=== PATIENT | male | born 1945 | race Hispanic/Latino ===

== ENCOUNTER 2019-10-15 21:24 | Inpatient (IN) | payer MEDICAID, OTHER ==
[~2019-10-15] VITALS: Ht 165.1 cm; Wt 63.3 kg
[2019-10-15 22:17] LABS: BASOPHILS % (AUTO) 0.4 % (0.0-5.0); EOSINOPHILS % (AUTO) 2.1 % (0.0-8.0); HEMATOCRIT 36.5 % (42-54); LYMPHOCYTES % (AUTO) 20.8 % (21.0-51.0); MEAN CORPUSCULAR HEMOGLOBIN 27.6 pg (27.0-33.0); MEAN CORPUSCULAR HGB CONC 32.9 g/dL (32.0-36.0); MEAN CORPUSCULAR VOLUME 83.9 fL (79-99); MONOCYTES % (AUTO) 10.1 % (3.0-13.0); NEUTROPHILS % (AUTO) 66.3 % (40.0-77.0); PLATELET COUNT (AUTO) 228 K/uL (130-400); RED BLOOD CELL COUNT(AUTO) 4.35 MIL/uL (4.50-6.20); RED CELL DISTRIBUTION WIDTH 14.4 % (11.0-15.5); WHITE BLOOD COUNT (AUTO) 6.7 K/uL (4.8-10.8)
[2019-10-15 22:29] LABS: CREATININE 0.9 mg/dL (0.5-1.5); POTASSIUM 3.4 mmol/L (3.5-5.1)
[2019-10-15 22:33] LABS: INR 0.96 (0.85-1.15); PARTIAL THROMBOPLASTIN TIME 28.1 SEC (26.3-35.5); PROTHROMBIN TIME 10.1 SEC (9.6-11.6)
[2019-10-15 22:43] LABS: ALBUMIN 3.3 g/dL (3.5-5.0); BILIRUBIN,TOTAL 0.5 mg/dL (0.2-1.0); TOTAL PROTEIN, SERUM 6.9 g/dL (6.0-8.3)
[2019-10-15] MEDS ORDERED: LIDOCAINE HCL 2% JELLY 5 ML ONE (22:59)
[2019-10-15 23:17] LABS: APPEARANCE,URINE Clear (CLEAR); BILIRUBIN,URINE Negative (NEGATIVE); COLOR,URINE Yellow (YELLOW); GLUCOSE, URINE (UA) Negative (NEGATIVE); KETONES,URINE Trace mg/dL (NEGATIVE); LEUKOCYTE ESTERASE ,URINE Negative (NEGATIVE); NITRATE,URINE Negative (NEGATIVE); OCCULT BLOOD,URINE Negative (NEGATIVE); PROTEIN,URINE Trace mg/dL (NEGATIVE)
[2019-10-16] VITALS (11 sets, daily range): BP systolic 118–146; BP diastolic 61–75
[2019-10-16] MEDS ORDERED: NITROGLYCERIN 1GM/1 INCH PACKET TD ONE (00:43)
[2019-10-16] MEDS ORDERED: SODIUM CHLORIDE 0.9% 1000ML 1,000 ML IV ONE (00:48)
[2019-10-16] MEDS ORDERED: SODIUM CHLORIDE 0.9% 1000ML 1,000 ML IV SCH (02:00)
[2019-10-16] MEDS ORDERED: ONDANSETRON HCL 4 MG/2 ML VIAL IV PRN (02:00)
[2019-10-16] MEDS ORDERED: ASPIRIN 81MG TAB.CHEW PO SCH (02:00)
[2019-10-16] MEDS ORDERED: NITROGLYCERIN 0.4 MG SL TAB SL PRN (02:00)
[2019-10-16] MEDS: NITROGLYCERIN 1GM/1 INCH PACKET TD SCH ×3 (02:00→17:52)
--- NOTE | 2019-10-16 03:50 | NUR ---
Admission note: Admitted to floor via stretcher. AOx 4. Pt. very responsive and cooperative. Placed in bed comfortably with HOBE to semi- fowlers position. VS checked and recorded. Assessment done. ( see CPOE flow chart for full assessment). Has 14 fr NGT attached to LIS as ordered with orange-brownish fluid output. Plan of care initiated. Attached to Telemetry at bedside with SB 56 result. Hospitalist QUENTIN Canela came in to visit and assessed pt. with some additional orders. Pt. maintained on NPO. Oriented to room and used of call light. Policies and procedures explained. Verbalized understanding. For Surgeon consult, Sai TUTTLE aware as reported from ER staff ( Mariaelena HORVATH) Kept monitored and observed for any unusualities. Verbalized discomfort felt is mild and tolerable. No apparent distress noted. Endorsed to AM shift accordingly.
[2019-10-16] MEDS ORDERED: ATOR40TA69 PO (04:36)
[2019-10-16] MEDS ORDERED: FURO20TA4 PO (04:36)
[2019-10-16] MEDS ORDERED: ESCI5TAB10 PO (04:36)
[2019-10-16] MEDS ORDERED: ALLO100T PO (04:36)
[2019-10-16] MEDS ORDERED: AEC81 PO (04:36)
[2019-10-16] MEDS ORDERED: LOSA25TA41 PO (04:36)
[2019-10-16] MEDS ORDERED: CARV3.12 PO (04:36)
[2019-10-16 06:26] LABS: BASOPHILS % (AUTO) 0.4 % (0.0-5.0); HEMATOCRIT 34.5 % (42-54); LYMPHOCYTES % (AUTO) 28.4 % (21.0-51.0); MEAN CORPUSCULAR HEMOGLOBIN 27.3 pg (27.0-33.0); MEAN CORPUSCULAR HGB CONC 32.2 g/dL (32.0-36.0); MEAN CORPUSCULAR VOLUME 84.8 fL (79-99); MONOCYTES % (AUTO) 10.9 % (3.0-13.0); NEUTROPHILS % (AUTO) 56.1 % (40.0-77.0); PLATELET COUNT (AUTO) 202 K/uL (130-400); RED BLOOD CELL COUNT(AUTO) 4.07 MIL/uL (4.50-6.20); RED CELL DISTRIBUTION WIDTH 14.5 % (11.0-15.5); WHITE BLOOD COUNT (AUTO) 4.8 K/uL (4.8-10.8)
[2019-10-16 06:49] LABS: ALBUMIN 2.9 g/dL (3.5-5.0); BILIRUBIN,TOTAL 0.5 mg/dL (0.2-1.0); CREATININE 0.9 mg/dL (0.5-1.5); MAGNESIUM 1.9 mg/dL (1.80-2.40); POTASSIUM 3.3 mmol/L (3.5-5.1); TOTAL PROTEIN, SERUM 6.2 g/dL (6.0-8.3); TROPONIN I 0.07 ng/mL (0.00-0.06)
[2019-10-16] MEDS: POTASSIUM CHLORIDE 20MEQ/100ML 100 ML IV PRN (08:49)
[2019-10-16] MEDS: LIDOCAINE HCL-MPF 1% 2ML VIAL IJ PRN (08:50)
[2019-10-16] MEDS: FAMOTIDINE/PF 20 MG/2 ML VIAL IV SCH ×2 (08:50→21:42)
[2019-10-16] MEDS: DEXTROSE 5%-LACTATED RINGERS 1,000 ML IV SCH ×2 (10:26→21:42)
[2019-10-16] MEDS: ZOSYN 3.375GM+NS 50ML 50 ML IV SCH ×2 (10:26→17:51)
[2019-10-16 12:21] LABS: TROPONIN I 0.06 ng/mL (0.00-0.06)
--- NOTE | 2019-10-16 16:34 | NUR ---
MESSAGE LEFT WITH KATRIN REDRAWER ON STAT ORDER FOR ECHOCARDIOGRAM PLACED BY DR VENEGAS ..
--- NOTE | 2019-10-16 19:43 | NUR ---
NANNETTE TUTTLE ROUNDED: Came in to visit , assessed and examined the pt. with orders - carried out. For EGD with consent signed eliseo (10/17/19) at 1300. miller supervisor Ms. Painter notified. Pt. maintained on NPO attached to LIS.
[2019-10-16] MEDS ORDERED: POTASSIUM CHLORIDE IV ONE (20:30)
[2019-10-16] MEDS ORDERED: SODIUM CHLORIDE 0.9% IV ONE (20:30)
[2019-10-16] MEDS ORDERED: AZITHROMYCIN 500MG+NS 250ML 250 ML IV ONE (20:45)
[2019-10-17] VITALS (21 sets, daily range): BP systolic 92–158; BP diastolic 59–87
[2019-10-17] MEDS: ZOSYN 3.375GM+NS 50ML 50 ML IV SCH ×4 (00:27→23:54)
[2019-10-17] MEDS: NITROGLYCERIN 1GM/1 INCH PACKET TD SCH ×3 (02:03→18:00)
[2019-10-17 06:08] LABS: HEMATOCRIT 38.9 % (42-54); MEAN CORPUSCULAR HEMOGLOBIN 27.5 pg (27.0-33.0); MEAN CORPUSCULAR HGB CONC 32.4 g/dL (32.0-36.0); MEAN CORPUSCULAR VOLUME 84.7 fL (79-99); PLATELET COUNT (AUTO) 249 K/uL (130-400); RED BLOOD CELL COUNT(AUTO) 4.59 MIL/uL (4.50-6.20); RED CELL DISTRIBUTION WIDTH 14.5 % (11.0-15.5); WHITE BLOOD COUNT (AUTO) 8.5 K/uL (4.8-10.8)
[2019-10-17 06:16] LABS: CREATININE 1.1 mg/dL (0.5-1.5); MAGNESIUM 1.8 mg/dL (1.80-2.40); POTASSIUM 3.5 mmol/L (3.5-5.1)
[2019-10-17 08:00] LABS: BASOPHILS % (MANUAL) 2 % (0-2); EOSINOPHILS % (MANUAL) 2 % (1-6); LYMPHOCYTES % (MANUAL) 24 % (22-44); MONOCYTES % (MANUAL) 7 % (2-9); SEGMENTED NEUTROPHILS % 65 % (40-70)
[2019-10-17 08:01] LABS: MAN.DIFF COMMENT-IMPRESSION MANUAL DIFFERENTIAL; PLATELET MORPHOLOGY COMMENT ADEQUATE
[2019-10-17] MEDS: CARVEDILOL 3.125 MG TABLET PO SCH ×2 (08:53→21:00)
[2019-10-17] MEDS: ASPIRIN 81MG TAB.CHEW PO SCH (08:53)
[2019-10-17] MEDS: LISINOPRIL 10 MG TABLET PO SCH (08:53)
[2019-10-17] MEDS: SPIRONOLACTONE 25 MG TAB PO SCH (08:54)
--- NOTE | 2019-10-17 09:01 | NUR ---
DC PLAN MEET WITH PATIENT IN ROOM. PER PATIENT, LIVES WITH SPOUSE IN SONS HOME, NO PROVIDER OR COMMUNITY SERVICES, PATIENT DOESNT DRIVE AND DAUGHTER TAKES HIM TO APPOINTMENTS, NO DME IN USE, AND FEELS SAFE TO RETURN HOME. COMMUNITY RESOURCE PACKET GIVEN TO PATIENT, VERBALIZED UNDERSTANDING OF INFORMATION. Addendum: 10/17/19 at 0904 by BRANDON HERNANDEZ RN CM Amended: Links added.
[2019-10-17] MEDS: FAMOTIDINE/PF 20 MG/2 ML VIAL IV SCH ×2 (09:59→22:53)
[2019-10-17] MEDS: DEXTROSE 5%-LACTATED RINGERS 1,000 ML IV SCH ×2 (10:45→23:55)
[2019-10-17] MEDS ORDERED: PROPOFOL 10 MG/ML 20ML VIAL IV ONE (15:03)
[2019-10-17] MEDS: ATORVASTATIN CALCIUM 20 MG TABLET PO SCH (21:00)
[2019-10-18] VITALS (7 sets, daily range): BP systolic 103–150; BP diastolic 59–87
[2019-10-18] MEDS: NITROGLYCERIN 1GM/1 INCH PACKET TD SCH ×3 (01:59→18:00)
[2019-10-18 05:09] LABS: MAGNESIUM 1.7 mg/dL (1.80-2.40); POTASSIUM 3.4 mmol/L (3.5-5.1)
[2019-10-18] MEDS: FAMOTIDINE/PF 20 MG/2 ML VIAL IV SCH (08:32)
[2019-10-18] MEDS: ZOSYN 3.375GM+NS 50ML 50 ML IV SCH ×2 (08:35→17:20)
[2019-10-18] MEDS: ASPIRIN 81MG TAB.CHEW PO SCH (09:00)
[2019-10-18] MEDS: CARVEDILOL 3.125 MG TABLET PO SCH ×2 (09:00→20:15)
[2019-10-18] MEDS: LISINOPRIL 10 MG TABLET PO SCH (09:00)
[2019-10-18] MEDS: SPIRONOLACTONE 25 MG TAB PO SCH (09:00)
[2019-10-18] MEDS: PANTOPRAZOLE 40 MG/VIAL IVP SCH ×2 (13:12→20:15)
[2019-10-18] MEDS: DEXTROSE 5%-LACTATED RINGERS 1,000 ML IV SCH (17:25)
[2019-10-18] MEDS ORDERED: FLU VACC QS2019-20 36MOS UP/PF 60 MCG/0.5 ML ML IM ONE (18:43)
--- NOTE | 2019-10-18 19:46 | NUR ---
flu vaccine not given. spouse reports pt has already gotten the vaccine. Stable.
[2019-10-18] MEDS: ATORVASTATIN CALCIUM 20 MG TABLET PO SCH (20:15)
[2019-10-18] MEDS: KETOROLAC TROMETHAMINE 15MG/ML IV PRN (21:14)
[2019-10-19] MEDS: ZOSYN 3.375GM+NS 50ML 50 ML IV SCH ×2 (00:28→11:22)
[2019-10-19] MEDS: NITROGLYCERIN 1GM/1 INCH PACKET TD SCH ×3 (02:00→17:46)
--- NOTE | 2019-10-19 02:30 | NUR ---
Nursing Note-IV Pt IV leaking some but pt refused to let me remove IV and start another. PT stated "My IV's always leak, the other nurse wanted to change the IV also but I don't want you too" Addendum: 10/19/19 at 0507 by DARVIN LATHAM RN RN Charted on wrong pt
--- NOTE | 2019-10-19 03:30 | NUR ---
Nursing Note-Downtime Pt medication charted on paper charting
[2019-10-19] MEDS: DEXTROSE 5%-LACTATED RINGERS 1,000 ML IV SCH ×2 (03:40→20:27)
[2019-10-19 04:49] VITALS: BP 130/70
[2019-10-19 06:18] LABS: HEMATOCRIT 36.5 % (42-54); MEAN CORPUSCULAR HEMOGLOBIN 26.9 pg (27.0-33.0); MEAN CORPUSCULAR HGB CONC 32.3 g/dL (32.0-36.0); MEAN CORPUSCULAR VOLUME 83.3 fL (79-99); PLATELET COUNT (AUTO) 234 K/uL (130-400); RED BLOOD CELL COUNT(AUTO) 4.38 MIL/uL (4.50-6.20); RED CELL DISTRIBUTION WIDTH 14.3 % (11.0-15.5); WHITE BLOOD COUNT (AUTO) 5.4 K/uL (4.8-10.8)
[2019-10-19 06:34] LABS: MAGNESIUM 1.7 mg/dL (1.80-2.40); POTASSIUM 3.1 mmol/L (3.5-5.1)
[2019-10-19] MEDS: MAGNESIUM 2GM PREMIX 50ML 50 ML IV PRN (06:37)
[2019-10-19 08:00] VITALS: BP 117/71
[2019-10-19] MEDS: CARVEDILOL 3.125 MG TABLET PO SCH ×2 (09:00→20:15)
[2019-10-19] MEDS: SPIRONOLACTONE 25 MG TAB PO SCH (09:00)
[2019-10-19] MEDS: LISINOPRIL 10 MG TABLET PO SCH (09:00)
[2019-10-19] MEDS: ASPIRIN 81MG TAB.CHEW PO SCH (09:00)
[2019-10-19 09:46] LABS: EOSINOPHILS % (MANUAL) 1 % (1-6); LYMPHOCYTES % (MANUAL) 21 % (22-44); MONOCYTES % (MANUAL) 15 % (2-9); SEGMENTED NEUTROPHILS % 63 % (40-70)
[2019-10-19 09:47] LABS: MAN.DIFF COMMENT-IMPRESSION MANUAL DIFFERENTIAL; PLATELET MORPHOLOGY COMMENT ADEQUATE
[2019-10-19] MEDS ORDERED: LIDOCAINE 5% TOPICAL PATCH TP SCH (10:30)
[2019-10-19 12:00] VITALS: BP 134/67
[2019-10-19] MEDS: POTASSIUM CHLORIDE 20MEQ/100ML 100 ML IV PRN ×2 (13:21→17:33)
[2019-10-19] MEDS: LIDOCAINE HCL-MPF 1% 2ML VIAL IJ PRN ×2 (13:21→17:33)
[2019-10-19] MEDS: PHARMACY COMMUNICATION MISC SCH ×2 (15:45→23:45)
[2019-10-19 16:00] VITALS: BP 143/79
[2019-10-19 18:20] LABS: CREATININE 0.9 mg/dL (0.5-1.5); POTASSIUM 3.5 mmol/L (3.5-5.1)
[2019-10-19 20:00] VITALS: BP 138/72
[2019-10-19] MEDS: PANTOPRAZOLE 40 MG/VIAL IVP SCH (20:14)
[2019-10-19] MEDS: ATORVASTATIN CALCIUM 20 MG TABLET PO SCH (20:15)
[2019-10-19] MEDS: KETOROLAC TROMETHAMINE 15MG/ML IV PRN (22:08)
[2019-10-20] VITALS: BP 135/64
[2019-10-20] MEDS: NITROGLYCERIN 1GM/1 INCH PACKET TD SCH ×3 (01:32→17:55)
[2019-10-20 04:00] VITALS: BP 120/64
[2019-10-20] MEDS: DEXTROSE 5%-LACTATED RINGERS 1,000 ML IV SCH ×2 (05:56→14:21)
[2019-10-20 06:05] LABS: MAGNESIUM 1.9 mg/dL (1.80-2.40); POTASSIUM 3.5 mmol/L (3.5-5.1)
[2019-10-20] MEDS: POTASSIUM CHLORIDE 20MEQ/100ML 100 ML IV PRN (07:11)
[2019-10-20] MEDS: PHARMACY COMMUNICATION MISC SCH ×3 (07:45→23:45)
[2019-10-20 08:00] VITALS: BP 127/63
[2019-10-20] MEDS: CARVEDILOL 3.125 MG TABLET PO SCH ×2 (08:36→19:54)
[2019-10-20] MEDS: ASPIRIN 81MG TAB.CHEW PO SCH (08:36)
[2019-10-20] MEDS: SPIRONOLACTONE 25 MG TAB PO SCH (08:36)
[2019-10-20] MEDS: LISINOPRIL 10 MG TABLET PO SCH (08:36)
[2019-10-20] MEDS: PANTOPRAZOLE 40 MG/VIAL IVP SCH ×2 (08:38→20:00)
[2019-10-20 12:00] VITALS: BP_SYST 127; BP_SYST 132; BP_DIAS 63; BP_DIAS 72
[2019-10-20 16:00] VITALS: BP 152/74
[2019-10-20 19:00] VITALS: BP 140/76
[2019-10-20] MEDS: ATORVASTATIN CALCIUM 20 MG TABLET PO SCH (19:55)
[2019-10-20] MEDS: KETOROLAC TROMETHAMINE 15MG/ML IV PRN (20:01)
[2019-10-21] VITALS: BP 136/68
[2019-10-21] MEDS: NITROGLYCERIN 1GM/1 INCH PACKET TD SCH ×3 (01:43→17:51)
[2019-10-21 04:00] VITALS: BP 131/69
[2019-10-21] MEDS: DEXTROSE 5%-LACTATED RINGERS 1,000 ML IV SCH ×2 (04:39→21:48)
[2019-10-21 05:31] LABS: BASOPHILS % (AUTO) 0.3 % (0.0-5.0); EOSINOPHILS % (AUTO) 5.4 % (0.0-8.0); HEMATOCRIT 38.2 % (42-54); LYMPHOCYTES % (AUTO) 22.3 % (21.0-51.0); MEAN CORPUSCULAR HEMOGLOBIN 26.9 pg (27.0-33.0); MEAN CORPUSCULAR HGB CONC 32.2 g/dL (32.0-36.0); MEAN CORPUSCULAR VOLUME 83.4 fL (79-99); MONOCYTES % (AUTO) 8.2 % (3.0-13.0); NEUTROPHILS % (AUTO) 63.5 % (40.0-77.0); PLATELET COUNT (AUTO) 251 K/uL (130-400); RED BLOOD CELL COUNT(AUTO) 4.58 MIL/uL (4.50-6.20); RED CELL DISTRIBUTION WIDTH 14.3 % (11.0-15.5); WHITE BLOOD COUNT (AUTO) 5.9 K/uL (4.8-10.8)
[2019-10-21 05:46] LABS: MAGNESIUM 1.8 mg/dL (1.80-2.40); POTASSIUM 3.5 mmol/L (3.5-5.1)
[2019-10-21] MEDS: MAGNESIUM 2GM PREMIX 50ML 50 ML IV PRN (07:05)
[2019-10-21] MEDS: PHARMACY COMMUNICATION MISC SCH ×3 (07:45→23:42)
[2019-10-21 08:00] VITALS: BP 120/54
[2019-10-21] MEDS: ASPIRIN 81MG TAB.CHEW PO SCH (09:00)
[2019-10-21] MEDS: LISINOPRIL 10 MG TABLET PO SCH (09:00)
[2019-10-21] MEDS: CARVEDILOL 3.125 MG TABLET PO SCH ×2 (09:00→20:29)
[2019-10-21] MEDS: SPIRONOLACTONE 25 MG TAB PO SCH (09:00)
[2019-10-21] MEDS: PANTOPRAZOLE 40 MG/VIAL IVP SCH ×2 (09:31→21:47)
[2019-10-21 12:00] VITALS: BP 122/60
[2019-10-21] MEDS: LIDOCAINE HCL-MPF 1% 2ML VIAL IJ PRN (12:41)
[2019-10-21] MEDS: POTASSIUM CHLORIDE 20MEQ/100ML 100 ML IV PRN (12:41)
--- NOTE | 2019-10-21 14:25 | NUR ---
Nutrition intervention: Nutrition notification for "Pt has been NPO since admission". Pt admitted for bowel obstruction and elevated troponin. Pt is currently NPO x6days, LBM noted on 10/17, RN reports bowel sounds are present. 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 As per Dr. Fuentes's orders pt to remain NPO and follow up in two weeks in his office. Recommendations: Begin alternate means of nutrition. PPN recommendations made by MEAGAN, left in pt's chart- YULIET Corbin notified. RD to continue monitoring pt's nutritional status for continued intervention. Addendum: 10/21/19 at 1429 by MARIA DEL CARMEN MCDERMOTT RD RD Amended: Links added.
[2019-10-21 16:00] VITALS: BP 124/59
[2019-10-21] MEDS: LIDOCAINE 5% TOPICAL PATCH TP SCH (18:18)
[2019-10-21 20:00] VITALS: BP 138/72
[2019-10-21] MEDS: ATORVASTATIN CALCIUM 20 MG TABLET PO SCH (20:30)
--- NOTE | 2019-10-21 21:47 | NUR ---
MEDS SHIFT ASSESSMENT DONE, PLEASE REFER TO CHART. DUE MEDS ADMINISTERED, TOLERATED WELL. KEPT RESTED AND COMFORTABLE WITH HOB ELEVATED. KEPT NPO. KEPT NGT TO LIS. WILL MONITOR PT. CALL LIGHT WITHIN REACH. Addendum: 10/22/19 at 0044 by MURALI CAMPBELL RN RN Amended: Links added.
[2019-10-22] VITALS (7 sets, daily range): BP systolic 102–130; BP diastolic 56–71
[2019-10-22] MEDS: NITROGLYCERIN 1GM/1 INCH PACKET TD SCH ×2 (02:00→10:00)
--- NOTE | 2019-10-22 02:00 | NUR ---
ROUNDS PT RESTING WELL, NO DISTRESS NOTED. KEPT RESTED AND COMFORTABLE. CALL LIGHT WITHIN REACH. WILL MONITOR PT. FAMILY ASLEEP AT BEDSIDE.
[2019-10-22 05:13] LABS: MAGNESIUM 2.1 mg/dL (1.80-2.40); POTASSIUM 3.6 mmol/L (3.5-5.1)
[2019-10-22] MEDS: LIDOCAINE HCL-MPF 1% 2ML VIAL IJ PRN (05:33)
[2019-10-22] MEDS: POTASSIUM CHLORIDE 20MEQ/100ML 100 ML IV PRN (05:33)
--- NOTE | 2019-10-22 05:33 | NUR ---
KCL KCL=3.6. POTASSIUM REPLACEMENT IV STARTED. FIXED AND RE-TAPED NGT TO NOSE. KEPT TO LIS. KEPT PT NPO. FOR MORE CARE AND MANAGEMENT.
--- NOTE | 2019-10-22 09:58 | NUR ---
RD FOLLOW UP PT REMAINS NPO; HAS BEEN NPO SINCE ADMISSION. RD RECOMMENDS TO CONSIDER ALTERNATE MEANS OF NUTRITION- TPN VS PPN. IF PT WILL BE NPO FOR SEVERAL WEEKS- RD RECOMMENDS LONG-TERM, PARENTERAL NUTRITION; TPN VIA PICC LINE. IF PT WILL BE NPO FOR APPROX. 2 WEEKS OR LESS- RD RECOMMENDS SHORT-TERM PARENTERAL NUTRITION; PPN VIA PERIPHERAL ADMINISTRATION. LABS REVIEWED (TCK ELEVATED)- PT WITH LOWER PROTEIN NEEDS DUE TO THIS. MEDS REVIEWED. IF DECIDED TPN- RD RECOMMENDS PRE-MIXED CLINIMIX 5/15 AT 40ML/HR, WITH 20% INTRALIPIDS, 10ML MULTIVITAMINS IF PPN- RD RECOMMENDS CLINIMIX 4.25/5 AT 41.6ML/HR, WITH 20% INTRALIPIDS, 10ML MULTIVITAMINS Monitor CMP, Mg, Phos and Potassium Monitor Lipid panel every Tue,Tue,Tuesday RD WILL CONTINUE TO MONITOR AND FOLLOW UP, THANK YOU. Addendum: 10/22/19 at [address] Amended: Links added.
[2019-10-22] MEDS: DEXTROSE 5%-LACTATED RINGERS 1,000 ML IV SCH (11:40)
[2019-10-22] MEDS: ASPIRIN 81MG TAB.CHEW PO SCH (11:42)
[2019-10-22] MEDS: SPIRONOLACTONE 25 MG TAB PO SCH (11:42)
[2019-10-22] MEDS: LISINOPRIL 10 MG TABLET PO SCH (11:42)
[2019-10-22] MEDS: LIDOCAINE 5% TOPICAL PATCH TP SCH (11:43)
[2019-10-22] MEDS: PANTOPRAZOLE 40 MG/VIAL IVP SCH ×2 (11:43→20:45)
[2019-10-22] MEDS: CARVEDILOL 3.125 MG TABLET PO SCH ×2 (11:43→20:44)
[2019-10-22] MEDS ORDERED: HYDRALAZINE HCL 20 MG/ML VIAL IV PRN (17:45)
[2019-10-22 18:52] LABS: PARTIAL THROMBOPLASTIN TIME 25.6 SEC (26.3-35.5); PROTHROMBIN TIME 10.5 SEC (9.6-11.6)
[2019-10-22] MEDS: ATORVASTATIN CALCIUM 20 MG TABLET PO SCH (20:44)
[2019-10-23] MEDS: KETOROLAC TROMETHAMINE 15MG/ML IV PRN (00:01)
[2019-10-23 04:00] VITALS: BP 94/56
[2019-10-23 05:12] LABS: BASOPHILS % (AUTO) 0.9 % (0.0-5.0); EOSINOPHILS % (AUTO) 5.9 % (0.0-8.0); HEMATOCRIT 37.8 % (42-54); LYMPHOCYTES % (AUTO) 26.2 % (21.0-51.0); MEAN CORPUSCULAR HEMOGLOBIN 27.3 pg (27.0-33.0); MEAN CORPUSCULAR HGB CONC 32.8 g/dL (32.0-36.0); MEAN CORPUSCULAR VOLUME 83.3 fL (79-99); MONOCYTES % (AUTO) 7.5 % (3.0-13.0); NEUTROPHILS % (AUTO) 59.3 % (40.0-77.0); PLATELET COUNT (AUTO) 221 K/uL (130-400); RED BLOOD CELL COUNT(AUTO) 4.54 MIL/uL (4.50-6.20); RED CELL DISTRIBUTION WIDTH 14.3 % (11.0-15.5); WHITE BLOOD COUNT (AUTO) 5.6 K/uL (4.8-10.8)
[2019-10-23 05:29] LABS: CREATININE 1.1 mg/dL (0.5-1.5); POTASSIUM 3.6 mmol/L (3.5-5.1)
[2019-10-23] MEDS: DEXTROSE 5%-LACTATED RINGERS 1,000 ML IV SCH ×2 (06:45→14:20)
[2019-10-23 07:58] VITALS: BP 101/57
--- NOTE | 2019-10-23 10:51 | NUR ---
RD FOLLOW UP PER SURGEON, START TOTAL PARENTERAL NUTRITION VIA PICC LINE. RD RECOMMENDS TO USE PRE-MIXED CLINIMIX E 5/15 AT 40ML/HR ADD 20% INTRA-LIPIDS; RUN LIPID PANEL EVERY MON, WED AND FRI ADD 10ML ADULT MULTIVITAMINS MONITOR CMP, Mg, Phos and K RD WILL CONTINUE TO MONITOR AND FOLLOW UP, THANK YOU. Addendum: 10/23/19 at [address] Amended: Links added.
[2019-10-23 11:15] VITALS: BP 117/60
[2019-10-23] MEDS: ASPIRIN 81MG TAB.CHEW PO SCH (11:23)
[2019-10-23] MEDS: LIDOCAINE 5% TOPICAL PATCH TP SCH (11:24)
[2019-10-23] MEDS: CARVEDILOL 3.125 MG TABLET PO SCH ×2 (11:24→21:27)
[2019-10-23] MEDS: SPIRONOLACTONE 25 MG TAB PO SCH (11:24)
[2019-10-23] MEDS: LISINOPRIL 10 MG TABLET PO SCH (11:24)
--- NOTE | 2019-10-23 15:15 | NUR ---
NOTE PATIENT HAS BEEN STABLE BUT REMAINS WITH NGT TO LOW SUCTION INTERMITTENTLY. 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 ORDERS WERE RECEIVED FOR TPN SINCE HE WILL CONTINUE TO BE NPO. PICC LINE WAS JUST PLACED. WILL FAX TPN ORDERS TO PHARMACY TO START INFUSION. PICC LINE IS READY FOR USE. HAVE BEEN WAITING FOR DR KHALIL TO SPEAK TO FAMILY FOR THEY DO NOT KNOW THE PATHOLOGY RESULTS FROM BIOPSY. IS ALWAYS AT HIS SIDE.
[2019-10-23] MEDS ORDERED: M.V.I. IV [ADULT] 10 ML in CLINIMIX E 5%-15% 2,000 ML IV SCH (15:27)
[2019-10-23] MEDS ORDERED: FAT EMULSIONS 20% 250ML 250 ML IV SCH (15:28)
[2019-10-23] MEDS ORDERED: COMPOUND IV MISC 1 EACH IVSOLN MISC PRN (15:30)
[2019-10-23] MEDS ORDERED: COMPOUND IV REFRIGERATED 1 EACH IVSOLN MISC PRN (15:30)
[2019-10-23 16:30] VITALS: BP 117/66
[2019-10-23 19:30] VITALS: BP 134/71
[2019-10-23] MEDS: FAMOTIDINE/PF 20 MG/2 ML VIAL IV SCH (21:26)
[2019-10-23] MEDS: ATORVASTATIN CALCIUM 20 MG TABLET PO SCH (21:27)
[2019-10-23 23:44] VITALS: BP 130/71
[2019-10-24 03:30] VITALS: BP 89/50
[2019-10-24] MEDS: DEXTROSE 5%-LACTATED RINGERS 1,000 ML IV SCH ×2 (03:34→18:45)
[2019-10-24 05:42] LABS: BASOPHILS % (AUTO) 0.6 % (0.0-5.0); EOSINOPHILS % (AUTO) 4.2 % (0.0-8.0); HEMATOCRIT 35.4 % (42-54); LYMPHOCYTES % (AUTO) 16.1 % (21.0-51.0); MEAN CORPUSCULAR HEMOGLOBIN 27.5 pg (27.0-33.0); MEAN CORPUSCULAR HGB CONC 33.1 g/dL (32.0-36.0); MEAN CORPUSCULAR VOLUME 83.3 fL (79-99); MONOCYTES % (AUTO) 5.3 % (3.0-13.0); NEUTROPHILS % (AUTO) 73.5 % (40.0-77.0); PLATELET COUNT (AUTO) 215 K/uL (130-400); RED BLOOD CELL COUNT(AUTO) 4.25 MIL/uL (4.50-6.20); RED CELL DISTRIBUTION WIDTH 13.8 % (11.0-15.5); WHITE BLOOD COUNT (AUTO) 6.4 K/uL (4.8-10.8)
[2019-10-24 05:51] LABS: CREATININE 1.1 mg/dL (0.5-1.5); POTASSIUM 3.5 mmol/L (3.5-5.1)
[2019-10-24 08:02] VITALS: BP 117/56
[2019-10-24 08:37] LABS: ALBUMIN 2.4 g/dL (3.5-5.0); BILIRUBIN,DIRECT 0.2 mg/dL (0.0-0.3); BILIRUBIN,TOTAL 0.6 mg/dL (0.2-1.0); MAGNESIUM 1.6 mg/dL (1.80-2.40); PHOSPHORUS 3.4 mg/dL (2.5-4.9); TOTAL PROTEIN, SERUM 5.6 g/dL (6.0-8.3)
[2019-10-24] MEDS: FAMOTIDINE/PF 20 MG/2 ML VIAL IV SCH ×2 (08:58→20:05)
[2019-10-24] MEDS: LISINOPRIL 10 MG TABLET PO SCH (09:00)
[2019-10-24] MEDS: SPIRONOLACTONE 25 MG TAB PO SCH (09:00)
[2019-10-24] MEDS: CARVEDILOL 3.125 MG TABLET PO SCH ×2 (09:00→20:05)
[2019-10-24] MEDS: ASPIRIN 81MG TAB.CHEW PO SCH (09:00)
[2019-10-24] MEDS: LIDOCAINE 5% TOPICAL PATCH TP SCH (09:49)
[2019-10-24 11:24] VITALS: BP 94/51
[2019-10-24 16:22] VITALS: BP 101/54
[2019-10-24] MEDS: POTASSIUM CHLORIDE 20MEQ/100ML 100 ML IV PRN (16:57)
[2019-10-24] MEDS: LIDOCAINE HCL-MPF 1% 2ML VIAL IJ PRN (16:58)
[2019-10-24] MEDS ORDERED: M.V.I. IV [ADULT] 10 ML in CLINIMIX E 5%-15% 2,000 ML IV SCH ×2 (18:00→18:15)
[2019-10-24] MEDS: FAT EMULSIONS 20% 250ML 250 ML IV SCH (18:34)
[2019-10-24] MEDS: ATORVASTATIN CALCIUM 20 MG TABLET PO SCH (20:05)
[2019-10-24 20:09] VITALS: BP 95/57
[2019-10-25 00:12] VITALS: BP 101/58
[2019-10-25 04:20] VITALS: BP 92/50
[2019-10-25] MEDS: DEXTROSE 5%-LACTATED RINGERS 1,000 ML IV SCH ×2 (05:21→19:40)
[2019-10-25 05:33] LABS: BASOPHILS % (AUTO) 0.5 % (0.0-5.0); EOSINOPHILS % (AUTO) 3.8 % (0.0-8.0); HEMATOCRIT 35.5 % (42-54); LYMPHOCYTES % (AUTO) 15.8 % (21.0-51.0); MEAN CORPUSCULAR HEMOGLOBIN 27.3 pg (27.0-33.0); MEAN CORPUSCULAR HGB CONC 32.4 g/dL (32.0-36.0); MEAN CORPUSCULAR VOLUME 84.3 fL (79-99); MONOCYTES % (AUTO) 5.3 % (3.0-13.0); NEUTROPHILS % (AUTO) 74.2 % (40.0-77.0); PLATELET COUNT (AUTO) 215 K/uL (130-400); RED BLOOD CELL COUNT(AUTO) 4.21 MIL/uL (4.50-6.20); RED CELL DISTRIBUTION WIDTH 14.1 % (11.0-15.5); WHITE BLOOD COUNT (AUTO) 7.6 K/uL (4.8-10.8)
[2019-10-25 05:49] LABS: POTASSIUM 3.5 mmol/L (3.5-5.1)
[2019-10-25 07:42] VITALS: BP 89/53
[2019-10-25] MEDS ORDERED: M.V.I. IV [ADULT] 10 ML in CLINIMIX E 5%-15% 2,000 ML IV SCH (08:00)
[2019-10-25] MEDS: CARVEDILOL 3.125 MG TABLET PO SCH ×2 (09:00→21:00)
[2019-10-25] MEDS: LISINOPRIL 10 MG TABLET PO SCH (09:00)
[2019-10-25] MEDS ORDERED: GUAIFENESIN-DM 200/20 MG 10 ML PO SCH (10:30)
[2019-10-25] MEDS: MAGNESIUM 2GM PREMIX 50ML 50 ML IV PRN (10:30)
[2019-10-25] MEDS: FAT EMULSIONS 20% 250ML 250 ML IV SCH (10:30)
[2019-10-25] MEDS: FAMOTIDINE/PF 20 MG/2 ML VIAL IV SCH ×2 (10:31→21:07)
[2019-10-25] MEDS: ASPIRIN 81MG TAB.CHEW PO SCH (10:31)
[2019-10-25] MEDS: SPIRONOLACTONE 25 MG TAB PO SCH (10:32)
[2019-10-25] MEDS: LIDOCAINE 5% TOPICAL PATCH TP SCH (10:33)
[2019-10-25 11:00] VITALS: BP 99/53
[2019-10-25] MEDS: POTASSIUM CHLORIDE 20MEQ/100ML 100 ML IV PRN (12:35)
--- NOTE | 2019-10-25 13:18 | NUR ---
edin mistry here to see patient about transfer to higher level of care; she has spoken to Dr Gibbs and I have called lab and requested results of pathology report; i was told by lab that they would call pathologist and give me a call back. Marc CAMPOS has spoken to pt and family and informed them of need for transfer.
--- NOTE | 2019-10-25 13:22 | NUR ---
RD NOTIFICATION PT CURRENTLY RECEIVING TPN @75ML/HR + 20% FAT EMULSION. LABS REVIEWED. MEDS REVIEWED. ORDERED FOR PT TO BE TRANSFERRED TO [facility] FOR POSSIBLE WHIPPLE PROCEDURE NOTED. MEAGAN RECOMMENDS TO REVIEW LIPID PANEL FOR LOW LEVELS- POSSIBLE TO D/C STATIN (LIPITOR) OR PROVIDE LOWER DOSE CONTINUE WITH CURRENT TPN RECOMMENDATIONS CONTINUE TO MONITOR LABS AND TOLERANCE, THANK YOU. Addendum: 10/25/19 at [address] Amended: Links added.
--- NOTE | 2019-10-25 13:23 | NUR ---
TRANSFER SPOKE WITH DR. PÉREZ HE STATED PT NEEDS TO BE TRANSFERRED FOR HIGHER LEVEL OF CARE FOR A WHIPPLE PROCEDURE. PLACED A CALL TO R SPOKE TO [facility]. FAXED PERTINENT INFO, AWAITING CALL BACK.
--- NOTE | 2019-10-25 13:23 | NUR ---
SPOKE WITH DR. PÉREZ
--- NOTE | 2019-10-25 14:27 | NUR ---
TRANSFER LAVERNE FROM [facility] CALLED TO DECLINED PATIENT, THEY HAVE NO CAPACITY AT THIS TIME.
--- NOTE | 2019-10-25 14:30 | NUR ---
TRANSFER PLACED A CALL TO [facility] FOR TRANSFER TO HIGHER LEVEL OF CARE FOR A WHIPPLE PROCEDURE, GAVE PERTINENT INFO, AWAITING CALL BACK.
--- NOTE | 2019-10-25 14:49 | NUR ---
TRANSFER PLACED A CALL TO [facility] SPOKE TO [place] AT THE TRANSFER CENTER, GAVE PERTINENT INFO AND FAXED FACE SHEET. AWAITING CALL BACK
--- NOTE | 2019-10-25 15:14 | NUR ---
RECEIVED A CALL FROM [facility] FROM [place], TRANSFER DECLINED DUE TO NO ACCEPTING MD, PRIMARY NURSE MADE AWARE.
[2019-10-25 16:00] VITALS: BP 104/45
--- NOTE | 2019-10-25 17:02 | NUR ---
ORDERS FOR PALLIATIVE CONSULT SPOKE TO DR. BETO RAMESH DIFFICULTY W THIS TRANSFER, DIFFICULTY OBTAINED CARE OUTSIDE OF [place] ORDER TO HAVE DR. ROBLES VISIT PATIENT IF POSSIBLE TO DISCUSS OPTOINS AND HOLD ON TRANSFER UNTIL SEEN BY [place]INA WILKES SUPERVISOR LOCOMOTIVE AWARE; PRIMARY RN AWARE, HOUSE SUP AWARE. CALL TO DR BREWER AT [employer] 10/09/19; ANSWERING SERVICE, WOULD NOT CONNECT TO DR. LIM, TRY OFFICE IN AM. WLL FOLLOW UP IN AM
--- NOTE | 2019-10-25 18:00 | NUR ---
TRANSFER RECEIVED A CALL FROM [facility] SPOKE TO [place], TRANSFER REQUEST IS DECLINED DUE TO NOT HAVING AN MD THAT CAN DO THE WHIPPLE PROCEDURE. PRIMARY NURSE UPDATED.
[2019-10-25 19:00] VITALS: BP 112/61
[2019-10-25] MEDS: ATORVASTATIN CALCIUM 20 MG TABLET PO SCH (21:00)
[2019-10-26] VITALS: BP 116/60
[2019-10-26 04:00] VITALS: BP 92/53
[2019-10-26 04:54] LABS: BASOPHILS % (AUTO) 0.6 % (0.0-5.0); EOSINOPHILS % (AUTO) 3.3 % (0.0-8.0); HEMATOCRIT 35.5 % (42-54); LYMPHOCYTES % (AUTO) 17.7 % (21.0-51.0); MEAN CORPUSCULAR HEMOGLOBIN 27.1 pg (27.0-33.0); MEAN CORPUSCULAR HGB CONC 32.1 g/dL (32.0-36.0); MEAN CORPUSCULAR VOLUME 84.3 fL (79-99); MONOCYTES % (AUTO) 6.2 % (3.0-13.0); NEUTROPHILS % (AUTO) 71.9 % (40.0-77.0); PLATELET COUNT (AUTO) 203 K/uL (130-400); RED BLOOD CELL COUNT(AUTO) 4.21 MIL/uL (4.50-6.20); RED CELL DISTRIBUTION WIDTH 14.1 % (11.0-15.5); WHITE BLOOD COUNT (AUTO) 6.9 K/uL (4.8-10.8)
[2019-10-26 05:12] LABS: ALBUMIN 2.5 g/dL (3.5-5.0); BILIRUBIN,TOTAL 0.7 mg/dL (0.2-1.0); MAGNESIUM 1.9 mg/dL (1.80-2.40); PHOSPHORUS 2.7 mg/dL (2.5-4.9); POTASSIUM 3.7 mmol/L (3.5-5.1); TOTAL PROTEIN, SERUM 5.9 g/dL (6.0-8.3)
[2019-10-26] MEDS: GUAIFENESIN-DM 200/20 MG 10 ML PO PRN (05:35)
[2019-10-26 08:00] VITALS: BP 90/51
--- NOTE | 2019-10-26 10:10 | NUR ---
[facility] OUT OF TOWN UNTIL TUESDAY. ORDER FOR ONCOLOGIST, WILL F/UP AFTER ONCOLOGYVISIT, PROBABLY WILL BE A HOSPICE CONSULT
[2019-10-26] MEDS: FAMOTIDINE/PF 20 MG/2 ML VIAL IV SCH ×2 (10:29→21:24)
[2019-10-26] MEDS: LIDOCAINE 5% TOPICAL PATCH TP SCH (10:34)
[2019-10-26] MEDS: FAT EMULSIONS 20% 250ML 250 ML IV SCH (10:34)
[2019-10-26 11:00] VITALS: BP 91/57
[2019-10-26 16:00] VITALS: BP 105/53
[2019-10-26] MEDS ORDERED: M.V.I. IV [ADULT] 10 ML in CLINIMIX E 5%-15% 2,000 ML IV SCH (16:30)
--- NOTE | 2019-10-26 16:45 | NUR ---
DR. SHEIKH MD HERE TO SEE PATIENT. MD SPOKE TO PATIENT AND PATIENTS . DR. SHEIKH ASKED ME TO TRANSLATE HIS RECOMMENDATIONS TO PATIENT IN [place]. DR. 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 DR. SHEIKH ALSO EXPLAINED TO PATIENT THAT THE LOCATION OF THE MASSES IN THE DIGESTIVE SYSTEM IS MOST LIKELY THE CAUSE OF PATIENTS BOWEL OBSTRUCTION. MD ALSO TOLD PATIENT AND THAT PATIENT WOULD NOT BE A CANDIDATE FOR CHEMOTHERAPY BECAUSE OF PRESENCE OF BOWEL OBSTRUCTION. PATIENT AND ASKED MD REGARDING PROGNOSIS FOR THE TYPE OF CANCER AND DR. SHEIKH REPLIED THAT CANCER WAS PROBABLY AT STAGE 3 OR 4 AND PATIENT MAY HAVE ABOUT COUPLE MORE MONTHS OF LIFE EXPECTANCY. DR. SHEIKH SAID THAT SURGERY MAY NOT EVEN BE AN OPTION. PATIENTS ASKED ABOUT POSSIBILITY OF SURGERY AND DR. SHEIKH ANSWERED THAT THE ONLY PLACE THAT MAY DO ANY SORT OF SURGICAL OPERATION WOULD BE DR. MNO OF [facility]. BUT SINCE PATIENT WILL NOT BE ABLE TO QUALIFY FOR HOSPITAL TO HOSPITAL TRANSFER, THAT PATIENT MAY HAVE TO LEAVE THIS HOSPITAL AMA AND DRIVE TO [facility] EMERGENCY ROOM AND REPORT SIMILAR SYMPTOMS TO ER AND HOPE THAT A DOCTOR MAY TREAT HIM THERE. DR. SHEIKH TOLD PATIENT AND FAMILY "I'M JUST TELLING YOU THIS TO GIVE YOU PROFESSIONAL ADVISE, I SHOULDN'T EVEN BE TELLING YOU TO LEAVE THIS HOSPITAL AMA, BUT THAT IS YOUR ONLY HOPE YOU MIGHT HAVE. AND THAT DOES NOT GUARANTEE THAT A SURGEON WILL OPERATE ON YOU. YOU CAN CHOOSE TO GO TO ANOTHER HOSPITAL AND MAY THEY WILL OPERATE OR YOU CAN RETURN HOME WITH HOSPICE" PATIENT AND APPEARED DISTRESSED BY THIS NEWS AND STATED THEY WERE NOT AWARE OF RESULTS BEFORE DR. SHEIKH TOLD THEM NOW.
[2019-10-26 20:00] VITALS: BP 98/50
[2019-10-27] VITALS (7 sets, daily range): BP systolic 92–127; BP diastolic 48–68
[2019-10-27 04:48] LABS: BASOPHILS % (AUTO) 0.8 % (0.0-5.0); EOSINOPHILS % (AUTO) 4.9 % (0.0-8.0); HEMATOCRIT 36.9 % (42-54); LYMPHOCYTES % (AUTO) 18.5 % (21.0-51.0); MEAN CORPUSCULAR HEMOGLOBIN 27.4 pg (27.0-33.0); MEAN CORPUSCULAR HGB CONC 32.8 g/dL (32.0-36.0); MEAN CORPUSCULAR VOLUME 83.7 fL (79-99); MONOCYTES % (AUTO) 9.2 % (3.0-13.0); NEUTROPHILS % (AUTO) 66.4 % (40.0-77.0); PLATELET COUNT (AUTO) 225 K/uL (130-400); RED BLOOD CELL COUNT(AUTO) 4.41 MIL/uL (4.50-6.20); RED CELL DISTRIBUTION WIDTH 14.1 % (11.0-15.5); WHITE BLOOD COUNT (AUTO) 6.4 K/uL (4.8-10.8)
[2019-10-27] MEDS: FAMOTIDINE/PF 20 MG/2 ML VIAL IV SCH ×2 (10:38→19:52)
[2019-10-27] MEDS: LIDOCAINE 5% TOPICAL PATCH TP SCH (10:38)
[2019-10-27] MEDS: FAT EMULSIONS 20% 250ML 250 ML IV SCH (10:40)
[2019-10-27] MEDS ORDERED: M.V.I. IV [ADULT] 10 ML in CLINIMIX E 5%-15% 2,000 ML IV SCH (16:45)
[2019-10-28 04:00] VITALS: BP 100/50
[2019-10-28 05:37] LABS: BASOPHILS % (AUTO) 0.8 % (0.0-5.0); EOSINOPHILS % (AUTO) 3.9 % (0.0-8.0); HEMATOCRIT 36.6 % (42-54); LYMPHOCYTES % (AUTO) 16.6 % (21.0-51.0); MEAN CORPUSCULAR HEMOGLOBIN 27.3 pg (27.0-33.0); MEAN CORPUSCULAR HGB CONC 32.8 g/dL (32.0-36.0); MEAN CORPUSCULAR VOLUME 83.4 fL (79-99); MONOCYTES % (AUTO) 9.7 % (3.0-13.0); NEUTROPHILS % (AUTO) 68.5 % (40.0-77.0); PLATELET COUNT (AUTO) 219 K/uL (130-400); RED BLOOD CELL COUNT(AUTO) 4.39 MIL/uL (4.50-6.20); WHITE BLOOD COUNT (AUTO) 6.4 K/uL (4.8-10.8)
[2019-10-28 08:00] VITALS: BP 98/51
[2019-10-28 11:00] VITALS: BP 109/60
[2019-10-28] MEDS: FAT EMULSIONS 20% 250ML 250 ML IV SCH (11:03)
[2019-10-28] MEDS: FAMOTIDINE/PF 20 MG/2 ML VIAL IV SCH ×2 (11:11→20:23)
[2019-10-28] MEDS: LIDOCAINE 5% TOPICAL PATCH TP SCH (11:14)
[2019-10-28 16:00] VITALS: BP 102/53
[2019-10-28] MEDS ORDERED: M.V.I. IV [ADULT] 10 ML in CLINIMIX E 5%-15% 2,000 ML IV SCH (16:30)
[2019-10-28 19:30] VITALS: BP 109/55
[2019-10-28 23:30] VITALS: BP 130/82
[2019-10-29 03:30] VITALS: BP 110/61
[2019-10-29 06:16] LABS: BASOPHILS % (AUTO) 0.6 % (0.0-5.0); EOSINOPHILS % (AUTO) 3.8 % (0.0-8.0); HEMATOCRIT 37.9 % (42-54); LYMPHOCYTES % (AUTO) 17.5 % (21.0-51.0); MEAN CORPUSCULAR HEMOGLOBIN 26.8 pg (27.0-33.0); MEAN CORPUSCULAR HGB CONC 31.9 g/dL (32.0-36.0); MEAN CORPUSCULAR VOLUME 83.8 fL (79-99); MONOCYTES % (AUTO) 9.7 % (3.0-13.0); NEUTROPHILS % (AUTO) 68.2 % (40.0-77.0); PLATELET COUNT (AUTO) 214 K/uL (130-400); RED BLOOD CELL COUNT(AUTO) 4.52 MIL/uL (4.50-6.20); RED CELL DISTRIBUTION WIDTH 13.8 % (11.0-15.5); WHITE BLOOD COUNT (AUTO) 6.4 K/uL (4.8-10.8)
[2019-10-29 06:30] LABS: CREATININE 1.1 mg/dL (0.5-1.5)
[2019-10-29 08:25] VITALS: BP 110/61
[2019-10-29] MEDS: FAT EMULSIONS 20% 250ML 250 ML IV SCH (10:00)
[2019-10-29] MEDS: FAMOTIDINE/PF 20 MG/2 ML VIAL IV SCH ×2 (10:13→20:37)
[2019-10-29] MEDS: LIDOCAINE 5% TOPICAL PATCH TP SCH (10:13)
[2019-10-29 11:31] VITALS: BP 109/62
--- NOTE | 2019-10-29 11:51 | NUR ---
RD FOLLOW UP TPN AT 100ML/HR WITH 20% FAT EMULSION- PT RECEIVING 120GM PROTEIN/D RD RECOMMENDS TO DECREASE TPN RATE DUE TO EXCESS PROTEIN PATIENT DAILY PROTEIN REQUIREMENTS: NEEDS 69-78GM PROTEIN/D RD RECOMMENDS TO DECREASE TPN RATE TO 65ML/HR WITH 20% FAT EMULSION RD WILL CONTINUE TO MONITOR AND FOLLOW UP, THANK YOU. Addendum: 10/29/19 at [address] Amended: Links added.
[2019-10-29 16:22] VITALS: BP 120/64
--- NOTE | 2019-10-29 16:50 | NUR ---
CHART REVIEWED [PT STILL IN [place], STILL REC'ING TPN, STILL UNDECIDED ABOUT THEIR PLAN AFTER HOSPITALIZTION
[2019-10-29 19:30] VITALS: BP 100/54
[2019-10-29] MEDS ORDERED: M.V.I. IV [ADULT] 10 ML in CLINIMIX E 5%-15% 2,000 ML IV SCH (20:15)
[2019-10-29 23:49] VITALS: BP 100/61
[2019-10-30 03:30] VITALS: BP 93/59
[2019-10-30 08:13] VITALS: BP 87/61
[2019-10-30] MEDS: FAMOTIDINE/PF 20 MG/2 ML VIAL IV SCH ×2 (09:32→19:47)
[2019-10-30] MEDS: FAT EMULSIONS 20% 250ML 250 ML IV SCH (09:32)
[2019-10-30] MEDS: LIDOCAINE 5% TOPICAL PATCH TP SCH (09:32)
[2019-10-30] MEDS ORDERED: SODIUM CHLORIDE 0.9% 250 ML IV SCH (11:30)
[2019-10-30 11:41] VITALS: BP 114/55
[2019-10-30 16:54] VITALS: BP 108/62
[2019-10-30 19:30] VITALS: BP 116/70
[2019-10-30 23:30] VITALS: BP 111/60
[2019-10-31 03:30] VITALS: BP 104/62
[2019-10-31 05:37] LABS: BASOPHILS % (AUTO) 0.4 % (0.0-5.0); EOSINOPHILS % (AUTO) 2.8 % (0.0-8.0); HEMATOCRIT 38.6 % (42-54); LYMPHOCYTES % (AUTO) 17.4 % (21.0-51.0); MEAN CORPUSCULAR HGB CONC 32.4 g/dL (32.0-36.0); MEAN CORPUSCULAR VOLUME 83.4 fL (79-99); MONOCYTES % (AUTO) 9.7 % (3.0-13.0); NEUTROPHILS % (AUTO) 69.4 % (40.0-77.0); PLATELET COUNT (AUTO) 247 K/uL (130-400); RED BLOOD CELL COUNT(AUTO) 4.63 MIL/uL (4.50-6.20); RED CELL DISTRIBUTION WIDTH 13.8 % (11.0-15.5); WHITE BLOOD COUNT (AUTO) 7.5 K/uL (4.8-10.8)
[2019-10-31 06:15] LABS: POTASSIUM 3.8 mmol/L (3.5-5.1)
[2019-10-31 07:57] VITALS: BP 99/55
[2019-10-31] MEDS: FAT EMULSIONS 20% 250ML 250 ML IV SCH (09:33)
[2019-10-31] MEDS: LIDOCAINE 5% TOPICAL PATCH TP SCH (09:34)
[2019-10-31] MEDS: FAMOTIDINE/PF 20 MG/2 ML VIAL IV SCH ×2 (09:35→20:31)
[2019-10-31 11:14] VITALS: BP 96/56
[2019-10-31 15:41] VITALS: BP 105/62
[2019-10-31] MEDS ORDERED: M.V.I. IV [ADULT] 10 ML in CLINIMIX E 5%-15% 2,000 ML IV ONE (16:00)
[2019-10-31 19:23] VITALS: BP 119/61
[2019-10-31 23:14] VITALS: BP 110/61
[2019-11-01 03:56] VITALS: BP 101/59
[2019-11-01 04:45] LABS: BASOPHILS % (AUTO) 0.7 % (0.0-5.0); EOSINOPHILS % (AUTO) 2.3 % (0.0-8.0); HEMATOCRIT 38.1 % (42-54); LYMPHOCYTES % (AUTO) 16.4 % (21.0-51.0); MEAN CORPUSCULAR HEMOGLOBIN 27.2 pg (27.0-33.0); MEAN CORPUSCULAR HGB CONC 33.1 g/dL (32.0-36.0); MEAN CORPUSCULAR VOLUME 82.1 fL (79-99); MONOCYTES % (AUTO) 8.4 % (3.0-13.0); NEUTROPHILS % (AUTO) 71.9 % (40.0-77.0); PLATELET COUNT (AUTO) 256 K/uL (130-400); RED BLOOD CELL COUNT(AUTO) 4.64 MIL/uL (4.50-6.20); RED CELL DISTRIBUTION WIDTH 13.8 % (11.0-15.5); WHITE BLOOD COUNT (AUTO) 8.7 K/uL (4.8-10.8)
[2019-11-01 05:04] LABS: CREATININE 1.1 mg/dL (0.5-1.5); POTASSIUM 4.2 mmol/L (3.5-5.1)
[2019-11-01 08:05] VITALS: BP 109/53
[2019-11-01] MEDS: FAT EMULSIONS 20% 250ML 250 ML IV SCH (10:02)
[2019-11-01] MEDS: LIDOCAINE 5% TOPICAL PATCH TP SCH ×2 (10:03→21:24)
[2019-11-01] MEDS: FAMOTIDINE/PF 20 MG/2 ML VIAL IV SCH ×2 (10:08→21:10)
[2019-11-01 10:46] VITALS: BP 114/61
--- NOTE | 2019-11-01 12:09 | NUR ---
Status Went into room with patient, , Dr. Rojas, and QUENTIN Escobar. Discussed plan of care. Patient/family still wanting curative treatment and not interested in hospice. Explained will hospital to continue to reach out to hospitals that can perform Whipple procedures for acceptance. Informed may not have option for procedure if hospitals continue to deny and will need to consider other alternatives such as hospice if CM able to find a [facility] hospice. CM to continue to follow. CD Addendum: 11/01/19 at 1212 by JEFF DURHAM CM Amended: Links added.
[2019-11-01 15:40] VITALS: BP 107/65
[2019-11-01 19:25] VITALS: BP 113/61
[2019-11-01] MEDS ORDERED: M.V.I. IV [ADULT] 10 ML in CLINIMIX E 5%-15% 2,000 ML IV ONE (20:00)
[2019-11-01 23:02] VITALS: BP 115/69
[2019-11-02 03:44] VITALS: BP 115/62
[2019-11-02 04:29] LABS: BASOPHILS % (AUTO) 0.6 % (0.0-5.0); EOSINOPHILS % (AUTO) 1.9 % (0.0-8.0); HEMATOCRIT 40.8 % (42-54); LYMPHOCYTES % (AUTO) 14.6 % (21.0-51.0); MEAN CORPUSCULAR HEMOGLOBIN 26.9 pg (27.0-33.0); MEAN CORPUSCULAR HGB CONC 32.4 g/dL (32.0-36.0); MEAN CORPUSCULAR VOLUME 83.1 fL (79-99); MONOCYTES % (AUTO) 8.1 % (3.0-13.0); NEUTROPHILS % (AUTO) 74.5 % (40.0-77.0); PLATELET COUNT (AUTO) 244 K/uL (130-400); RED BLOOD CELL COUNT(AUTO) 4.91 MIL/uL (4.50-6.20); RED CELL DISTRIBUTION WIDTH 13.7 % (11.0-15.5); WHITE BLOOD COUNT (AUTO) 7.3 K/uL (4.8-10.8)
[2019-11-02 04:46] LABS: CREATININE 1.3 mg/dL (0.5-1.5); POTASSIUM 4.5 mmol/L (3.5-5.1)
[2019-11-02 08:09] VITALS: BP 100/62
[2019-11-02] MEDS: LIDOCAINE 5% TOPICAL PATCH TP SCH (09:04)
[2019-11-02] MEDS: FAMOTIDINE/PF 20 MG/2 ML VIAL IV SCH ×2 (09:04→21:58)
--- NOTE | 2019-11-02 10:17 | NUR ---
FOLLOW UP CONTINUE TPN RECOMMENDATIONS. MONITOR LABS. PT REFUSING HOSPICE AND PALLIATIVE CARE AT THIS TIME. [facility] [place] CONTINUE TO TRY AND REFER PT OUT TO A DIFFERENT FACILITY TO PERFORM WHIPPLE PROCEDURE. Addendum: 11/02/19 at [address] Amended: Links added.
--- NOTE | 2019-11-02 10:30 | NUR ---
NO GOOD OPTIONS DISCUSSED POC/DCP WITH CESAR SAAVEDRA AND DR. Veliz NO VIABLE OPTIONS FOR THIS PT. ONE PLAN ---TO REFER TO HOSPICE? IF DECLINED, PT/FAMILY CAN GO AMA? WILL F/UP IN AM Addendum: 11/03/19 at 0738 by AZUL TSAI RN CM Amended: Links added.
[2019-11-02 11:57] VITALS: BP 94/59
[2019-11-02] MEDS: FAT EMULSIONS 20% 250ML 250 ML IV SCH (15:26)
[2019-11-02 16:00] VITALS: BP 110/69
[2019-11-02 19:46] VITALS: BP 113/66
[2019-11-03] VITALS (7 sets, daily range): BP systolic 99–124; BP diastolic 60–77
[2019-11-03] MEDS: FAT EMULSIONS 20% 250ML 250 ML IV SCH (10:09)
[2019-11-03] MEDS: FAMOTIDINE/PF 20 MG/2 ML VIAL IV SCH ×2 (10:09→21:14)
[2019-11-03] MEDS: LIDOCAINE 5% TOPICAL PATCH TP SCH (10:13)
[2019-11-03] MEDS ORDERED: M.V.I. IV [ADULT] 10 ML in CLINIMIX E 5%-15% 2,000 ML IV ONE (14:30)
[2019-11-03] MEDS: M.V.I. IV [ADULT] 10 ML in CLINIMIX E 5%-15% 2,000 ML IV SCH (18:18)
[2019-11-04 03:30] VITALS: BP 115/62
[2019-11-04 05:26] LABS: BASOPHILS % (AUTO) 0.8 % (0.0-5.0); EOSINOPHILS % (AUTO) 2.2 % (0.0-8.0); HEMATOCRIT 39.7 % (42-54); LYMPHOCYTES % (AUTO) 16.7 % (21.0-51.0); MEAN CORPUSCULAR HEMOGLOBIN 26.7 pg (27.0-33.0); MEAN CORPUSCULAR HGB CONC 32.5 g/dL (32.0-36.0); MEAN CORPUSCULAR VOLUME 82.2 fL (79-99); MONOCYTES % (AUTO) 8.6 % (3.0-13.0); NEUTROPHILS % (AUTO) 71.4 % (40.0-77.0); PLATELET COUNT (AUTO) 262 K/uL (130-400); RED BLOOD CELL COUNT(AUTO) 4.83 MIL/uL (4.50-6.20); RED CELL DISTRIBUTION WIDTH 13.8 % (11.0-15.5); WHITE BLOOD COUNT (AUTO) 7.2 K/uL (4.8-10.8)
[2019-11-04 05:45] LABS: CREATININE 1.1 mg/dL (0.5-1.5); POTASSIUM 4.1 mmol/L (3.5-5.1)
[2019-11-04 08:00] VITALS: BP 116/52
[2019-11-04] MEDS: FAT EMULSIONS 20% 250ML 250 ML IV SCH (10:18)
[2019-11-04] MEDS: FAMOTIDINE/PF 20 MG/2 ML VIAL IV SCH ×2 (10:18→20:45)
[2019-11-04] MEDS: LIDOCAINE 5% TOPICAL PATCH TP SCH (10:18)
[2019-11-04 11:00] VITALS: BP 112/60
[2019-11-04 16:00] VITALS: BP 118/67
[2019-11-04] MEDS: M.V.I. IV [ADULT] 10 ML in CLINIMIX E 5%-15% 2,000 ML IV SCH (17:45)
[2019-11-04 19:30] VITALS: BP 121/65
[2019-11-04] MEDS ORDERED: M.V.I. IV [ADULT] 10 ML in CLINIMIX E 4.25%-5% SOLUTION 2,000 ML IV SCH (21:00)
[2019-11-04 23:00] VITALS: BP 104/60
[2019-11-05 04:00] VITALS: BP 101/60
[2019-11-05 05:48] LABS: BASOPHILS % (AUTO) 0.5 % (0.0-5.0); HEMATOCRIT 40.3 % (42-54); LYMPHOCYTES % (AUTO) 16.3 % (21.0-51.0); MEAN CORPUSCULAR HEMOGLOBIN 26.5 pg (27.0-33.0); MEAN CORPUSCULAR HGB CONC 32.3 g/dL (32.0-36.0); MEAN CORPUSCULAR VOLUME 82.2 fL (79-99); MONOCYTES % (AUTO) 7.5 % (3.0-13.0); NEUTROPHILS % (AUTO) 73.4 % (40.0-77.0); PLATELET COUNT (AUTO) 282 K/uL (130-400); RED CELL DISTRIBUTION WIDTH 13.8 % (11.0-15.5); WHITE BLOOD COUNT (AUTO) 7.9 K/uL (4.8-10.8)
[2019-11-05 06:08] LABS: POTASSIUM 4.3 mmol/L (3.5-5.1)
[2019-11-05 06:38] LABS: CREATININE 1.1 mg/dL (0.5-1.5)
[2019-11-05 08:23] VITALS: BP 101/60
[2019-11-05] MEDS: FAMOTIDINE/PF 20 MG/2 ML VIAL IV SCH ×2 (09:38→21:28)
[2019-11-05] MEDS: FAT EMULSIONS 20% 250ML 250 ML IV SCH (09:39)
[2019-11-05 11:31] VITALS: BP 107/75
--- NOTE | 2019-11-05 15:20 | NUR ---
DR LIM Sw met with pt and . Educated couple on hospice criteria and [facility]. states that pt and family not understanding condition nor options. states she thought we were seeking possible transfer for needed surgery. 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 states that pt believes that NG tube is placed to "shrink tumor so that he can eat again". Sw explained to pt that this was not the purpose for NG Tube. Sw asked pt what he wanted. Pt states he wants to eat again, wants to be like he was before. SW asked if he wanted surgery. Pt not sure. SW educated and pt on Dr Lim. wanting to have Dr Lim meet with her and family to discuss condition and options. Sw spoke to Dr Lim who will meet with family at 9am tomorrow. CM and nurse aware of above
[2019-11-05 16:50] VITALS: BP 105/62
[2019-11-05 19:30] VITALS: BP 108/62
[2019-11-05] MEDS ORDERED: M.V.I. IV [ADULT] 10 ML in CLINIMIX E 4.25%-5% SOLUTION 2,000 ML IV SCH (21:00)
[2019-11-05 23:00] VITALS: BP 94/64
[2019-11-05] MEDS: LIDOCAINE 5% TOPICAL PATCH TP PRN (23:30)
[2019-11-06 04:00] VITALS: BP 101/51
[2019-11-06 04:41] LABS: BASOPHILS % (AUTO) 0.7 % (0.0-5.0); EOSINOPHILS % (AUTO) 2.1 % (0.0-8.0); HEMATOCRIT 38.9 % (42-54); MEAN CORPUSCULAR HEMOGLOBIN 26.8 pg (27.0-33.0); MEAN CORPUSCULAR HGB CONC 32.9 g/dL (32.0-36.0); MEAN CORPUSCULAR VOLUME 81.4 fL (79-99); MONOCYTES % (AUTO) 7.2 % (3.0-13.0); NEUTROPHILS % (AUTO) 76.7 % (40.0-77.0); PLATELET COUNT (AUTO) 299 K/uL (130-400); RED BLOOD CELL COUNT(AUTO) 4.78 MIL/uL (4.50-6.20); RED CELL DISTRIBUTION WIDTH 13.5 % (11.0-15.5); WHITE BLOOD COUNT (AUTO) 9.1 K/uL (4.8-10.8)
[2019-11-06 05:10] LABS: CREATININE 1.1 mg/dL (0.5-1.5); POTASSIUM 4.3 mmol/L (3.5-5.1)
[2019-11-06 08:01] VITALS: BP 106/62
[2019-11-06] MEDS: FAT EMULSIONS 20% 250ML 250 ML IV SCH (09:37)
[2019-11-06] MEDS: FAMOTIDINE/PF 20 MG/2 ML VIAL IV SCH ×2 (09:38→19:53)
[2019-11-06 10:45] VITALS: BP 122/65
--- NOTE | 2019-11-06 14:54 | NUR ---
Dr Lin Sw present when Dr Lin met with pt, and grandson and grand daughter. Dr Lin discussed condition and options in detail. Pt did not appear to understand information given, but voiced understanding and was open to DNR and hospice at home. Dr Lin spoke to RETORT UNLOADER Keisha gave recommendations prior to dc. states she will discuss with son and notify Sw of decision in am, but is leaning towards hospice at home. Sw to f/u in am
[2019-11-06] MEDS ORDERED: M.V.I. IV [ADULT] 10 ML in CLINIMIX E 5%-15% 2,000 ML IV SCH (15:30)
[2019-11-06 16:14] VITALS: BP 133/79
[2019-11-06 19:30] VITALS: BP 119/87
[2019-11-06 23:00] VITALS: BP 107/70
--- NOTE | 2019-11-07 00:28 | NUR ---
ROUNDS PATIENT RESTING IN BED WITH OU CLOSED. EASILY AROUSED. NO COMPLAINTS OF PAIN VOICED AT THIS TIME. VITALS STABLE. AFEBRILE. RESP EVEN AND UNLABORED. NO SOB NOTED. ON ROOM AIR. NGT CLAMPED AT THIS TIME. NO NAUSEA OR VOMITING NOTED. HOB ELEVATED, CALL LIGHT WITHIN REACH. WILL CONTINUE TO BE OBSERVED. Addendum: 11/07/19 at 0038 by DESTINI HERNANDEZ RN RN Amended: Links added.
[2019-11-07 04:00] VITALS: BP 111/62
[2019-11-07] MEDS: GUAIFENESIN-DM 200/20 MG 10 ML PO PRN (04:22)
[2019-11-07 07:40] LABS: CHOLESTEROL 114 mg/dL (<200); HDL CHOLESTEROL 26 mg/dL (29-71); LDL DIRECT 85 mg/dL (0-99); TRIGLYCERIDES 35 mg/dL (30-200)
[2019-11-07 08:20] VITALS: BP 107/66
--- NOTE | 2019-11-07 09:03 | NUR ---
f/u Visit Letitia met with pt's she has decided to take patient home with hospice when MD gives dc order. Informed that [facility] bed and she gave consent for referral so that we can begin making arrangements. LETITIA informed nurse Figueroa of dc plan and she will inform MD. JS also informed of above. Letitia informed Mickey and faxed pt info to office DCP pending MD orders for dc
[2019-11-07] MEDS: FAMOTIDINE/PF 20 MG/2 ML VIAL IV SCH ×2 (09:25→20:55)
[2019-11-07] MEDS: FAT EMULSIONS 20% 250ML 250 ML IV SCH (10:34)
[2019-11-07 11:28] VITALS: BP 114/65
--- NOTE | 2019-11-07 12:16 | NUR ---
NGT DISLODGED WHILE PATIENT AMBULATING TO BATHROOM. QUENTIN GARY MADE AWARE. NO NEW ORDERS AT THIS TIME.
--- NOTE | 2019-11-07 12:35 | NUR ---
RD FOLLOW UP FAMILY DECIDED TO PROCEED WITH HOSPICE CARE - PLANNING D/C. MD STARTED PT ON CLEAR LIQUIDS. PER HOSPICE MD, REQUESTING D/C TPN ONCE PT IS TOLERATING CLEAR LIQUIDS. PT WITH POOR PO INTAKE AT THIS TIME, HE ONLY HAD HALF OF HIS JELLO PER RN. NO N/V/D NOTED AT THIS TIME, PER NURSE. LBM: 11/03 NOTED. LABS REVIEWED. MEDS REVIEWED. WILL CONTINUE TO MONITOR PO TOLERANCE RD RECOMMENDS TO CONTINUE TPN AT THIS TIME- D/C TPN WHEN MEDICALLY FEASIBLE Addendum: 11/07/19 at [address] Amended: Links added.
--- NOTE | 2019-11-07 15:35 | NUR ---
DCP: HOME WITH [facility] Sw met with who states that pt is discharging today. reports that son is putting in linoleum hannah in their home and DME can't be delivered until tomorrow. Sw educated and daughter on OOHDNR and signed. Mickey from [facility] was here to meet with family and he will have their Sweat Box Attendant sign form. states pt can travel by private car. Nurse and CM are aware of situation at home and that correction is for tomorrow am.
[2019-11-07 16:46] VITALS: BP 102/64
[2019-11-07 19:00] VITALS: BP 121/68
[2019-11-08] VITALS: BP 109/62
[2019-11-08 04:00] VITALS: BP 105/62
[2019-11-08 07:38] VITALS: BP 99/57
[2019-11-08] MEDS: FAMOTIDINE/PF 20 MG/2 ML VIAL IV SCH (08:54)
[2019-11-08] MEDS: FAT EMULSIONS 20% 250ML 250 ML IV SCH (10:08)
--- NOTE | 2019-11-08 10:12 | NUR ---
DCP: home with [facility] Sw spoke to Mickey at [facility]. Dme to be delivered this am by noon. Pt can dc then. Sw met and provided signed OOHDNR & copies. states DME due at their home around 11, son to be there to receive. Explained dc process to who voiced understanding. Pt to transport home by private car. Nurse Carolina aware of above.
[2019-11-08] MEDS: LIDOCAINE 5% TOPICAL PATCH TP PRN (11:07)
[2019-11-08 12:02] VITALS: BP 112/67
[2019-11-08 16:00] VITALS: BP 110/63
== END 2019-11-08 17:31 | disposition hospice, home (50) | DRG 375 ==
LOC: EDH 21:24 → EDHIP 21:25 → 4CH 10-16 04:43 → 4BH 10-23 17:04
PROVIDERS: ADMIT Internal Medicine; ATTEND Internal Medicine
PROC: 0D9670Z Drainage of Stomach with Drainage Device, Via Natural or Artificial Opening (ICD-10-PCS; principal; 2019-10-17)
PROC: 0DB98ZZ Excision of Duodenum, Via Natural or Artificial Opening Endoscopic (ICD-10-PCS; 2019-10-17)
PROC: 0DB98ZX Excision of Duodenum, Via Natural or Artificial Opening Endoscopic, Diagnostic (ICD-10-PCS; 2019-10-17)
PROC: 0DB68ZX Excision of Stomach, Via Natural or Artificial Opening Endoscopic, Diagnostic (ICD-10-PCS; 2019-10-17)
DX: C16.3 Malignant neoplasm of pyloric antrum (principal); K31.1 Adult hypertrophic pyloric stenosis; C17.0 Malignant neoplasm of duodenum; I50.22 Chronic systolic (congestive) heart failure; K31.5 Obstruction of duodenum; E46 Unspecified protein-calorie malnutrition; E87.6 Hypokalemia; I25.5 Ischemic cardiomyopathy; E78.00 Pure hypercholesterolemia, unspecified; K25.9 Gastric ulcer, unspecified as acute or chronic, without hemorrhage or perforation; I11.0 Hypertensive heart disease with heart failure; D64.9 Anemia, unspecified; E11.9 Type 2 diabetes mellitus without complications; E83.42 Hypomagnesemia; K29.00 Acute gastritis without bleeding; I25.10 Atherosclerotic heart disease of native coronary artery without angina pectoris; E78.5 Hyperlipidemia, unspecified; K21.0 Gastro-esophageal reflux disease with esophagitis; I25.2 Old myocardial infarction; Z95.1 Presence of aortocoronary bypass graft; Z83.3 Family history of diabetes mellitus; Z82.49 Family history of ischemic heart disease and other diseases of the circulatory system; Z87.891 Personal history of nicotine dependence; Z68.23 Body mass index [BMI] 23.0-23.9, adult
CPT/HCPCS: 36415; 43239; 71045; 74018; 74021; 74176; 80048; 80053; 80061; 80076; 81003; 82150; 82378; 82550; 83605; 83690; 83735; 83874; 84100; 84132; 84145; 84484; 85025; 85610; 85730; 87040; 88305; 93005; 93306; 99291; C9113; G0378; J0456; J1885; J2543; J2704; J3475; J3480; J3490; J7030; J7040; Q2035